=== PATIENT | male | born 1980 | race American Indian/Alaskan Native ===

== ENCOUNTER 2020-01-03 02:13 | Emergency (ER) | payer SELFPAY ==
[2020-01-03] MEDS ORDERED: ASPIRIN 325 MG TAB PO ONE (02:23)
[2020-01-03 02:54] LABS: Hematocrit 44.4 % (35.5-45.6); Hemoglobin 15.1 gm/dl (11.8-15.2); Mean Corpuscular HGB Conc 34 % (32-34); Mean Corpuscular Volume 95 fl (84-94); Platelet Count 287 K/mm3 (140-440); Red Blood Count 4.68 M/mm3 (3.65-5.03); Red Cell Distribution Width 12.9 % (13.2-15.2)
[2020-01-03] MEDS ORDERED: FAMOTIDINE 20 MG TAB PO ONE (03:05)
[2020-01-03] MEDS ORDERED: ACETAMINOPHEN 325 MG TAB PO ONE (03:05)
[2020-01-03] MEDS ORDERED: SUCRALFATE 1 GM/10 ML ORAL LIQD PO ONE (03:05)
--- NOTE | 2020-01-03 03:06 | Emergency Department Report ---
ED Chest Pain HPI - General Chief Complaint: Chest Pain Stated Complaint: CHEST PAIN Time Seen by Provider: 01/03/20 02:53 Source: patient, RN notes reviewed Mode of arrival: Ambulatory Limitations: No Limitations - History of Present Illness Initial Comments: The patient is a 39-year-old gentleman. He is not known to myself previously. He recently moved here from [place]. He reports that he had a negative cardiac stress test in [facility], probably within the past 6 months. He has a history of diabetes and hypertension. He presents to the ER with 2 complaints. His first complaint is left-sided and left epigastric pinching se nsation, present for months. It does not radiate to the back, arms or neck. There is no vomiting, diaphoresis or exertional shortness of breath. He does not have exacerbating or relieving factors that he is aware of. He denies recent travel, surgeries, leg pain, leg swelling, and oral contraceptive use. There is no family history of heart disease, DVT, or pulmonary embolism that he is aware of. He endorses a secondary complaint of right upper quadrant pinching discomfort, present for 4 days. It decreases with position. He cannot identify any exacerbating factors. There is no vomiting, fever, diaphoresis, urinary symptoms. He has not taken any eofg-ywq-nydsglg medications that he can recall. MD Complaint: chest pain, other -: Gradual Onset: during rest Pain Location: left chest, other Pain Radiation: none Severity scale (0 -10): 0 Quality: other Consistency: other Improves With: other Worsens With: other Context: other Aspirin use within the Past 7 Days: (0) No - Related Data Allergies Allergy/AdvReac Type Severity Reaction Status Date / Time No Known Allergies Allergy Unverified 01/03/20 02:22 Heart Score - HEART Score History: Slightly suspicious EKG: Non-specific Age: < 45 Risk factors: 1-2 risk factors Troponin: < normal limit HEART Score: 2 - Critical Actions Critical Actions: 0-3 pts:0.9-1.7%risk of adverse cardiac event.Candidate for discharge ED Review of Systems ROS: Stated complaint: CHEST PAIN Other details as noted in HPI Constitutional: denies: fever Eyes: denies: eye discharge ENT: denies: congestion Respiratory: denies: shortness of breath, wheezing Cardiovascular: chest pain. denies: syncope Gastrointestinal: denies: vomiting Genitourinary: as per HPI Musculoskeletal: as per HPI Skin: as per HPI Neurological: as per HPI Psychiatric: as per HPI Hematological/Lymphatic: as per HPI ED Past Medical Hx - Past Medical History Previous Medical History?: Yes Hx Hypertension: Yes Hx Diabetes: Yes - Surgical History Past Surgical History?: No - Social History Smoking Status: Former Smoker Substance Use Type: None ED Physical Exam - General Limitations: No Limitations General appearance: alert, in no apparent distress - Head Head exam: Present: atraumatic, normocephalic - Eye Eye exam: Present: normal appearance, EOMI. Absent: nystagmus - ENT ENT exam: Present: normal exam, normal orophraynx, mucous membranes moist, normal external ear exam - Neck Neck exam: Present: normal inspection, full ROM. Absent: tenderness, meningismus - Respiratory Respiratory exam: Present: normal lung sounds bilaterally. Absent: respiratory distress, wheezes, rales, rhonchi, stridor, chest wall tenderness, accessory muscle use, decreased breath sounds, prolonged expiratory - Cardiovascular Cardiovascular Exam: Present: regular rate, normal rhythm, normal heart sounds. Absent: bradycardia, tachycardia, irregular rhythm, systolic murmur, diastolic murmur, rubs, gallop - GI/Abdominal GI/Abdominal exam: Present: soft, normal bowel sounds, other (There is a negative Sprague sign. There is negative Rovsing sign. There is no right lower quadrant tenderness. There is no right upper quadrant tenderness.). Absent: distended, tenderness, guarding, rebound, rigid, pulsatile mass - Rectal Rectal exam: Present: deferred - Extremities Exam Extremities exam: Present: normal inspection, full ROM, other (2+ pulses noted in the bilateral upper and lower extremities. There is no palpable cord. negative Homans sign. Muscular compartments are soft. The pelvis is stable.). Absent: pedal edema, calf tenderness - Back Exam Back exam: Present: normal inspection, full ROM. Absent: tenderness, CVA tenderness (R), CVA tenderness (L), paraspinal tenderness, vertebral tenderness - Neurological Exam Neurological exam: Present: alert, normal gait, other (There is no facial droop. The tongue is midline. Extraocular movements are intact bilaterally. There is 5 out of 5 strength in bilateral upper and lower extremities. Sensation is intact to light touch bilateral upper and lower extremities. There is a normal gait.). Absent: motor sensory deficit - Psychiatric Psychiatric exam: Present: normal affect, normal mood - Skin Skin exam: Present: warm, dry, intact, normal color. Absent: rash ED Course Vital Signs 01/03/20 01/03/20 01/03/20 02:16 02:55 03:34 Temperature 98.6 F 98.7 F Pulse Rate 87 86 Respiratory 18 21 18 Rate Blood Pressure 167/94 Blood Pressure 143/84 [Left] O2 Sat by Pulse 99 99 98 Oximetry 01/03/20 04:08 Temperature 98.2 F Pulse Rate 85 Respiratory 17 Rate Blood Pressure Blood Pressure 126/79 [Left] O2 Sat by Pulse 99 Oximetry - Reevaluation(s) Reevaluation #1: 01/03/20 04:26 Patient resting comfortably, and in no acute distress. X-rays unremarkable. Do not suspect pneumonia or bronchitis clinically at this time. EKG unchanged x2, laboratory studies essentially unremarkable for emergent findings, patient playing with his cellular phone. He is medically suitable to follow-up with an outpatient primary care doctor or watchmaking teacher. AMAN score - Aman Score Age > 65: (0) No Aspirin use within the Past 7 Days: (0) No 3 or more CAD Risk Factors: (0) No 2 or more Angina events in past 24 hrs: (0) No Known CAD with more than 50% Stenosis: (0) No Elevated Cardiac Markers: (0) No ST Deviation Greater than 0.5mm: (0) No AMAN Score: 0 ED Medical Decision Making - Lab Data Result diagrams: 01/03/20 02:33 01/03/20 02:33 Vital Signs 01/03/20 01/03/20 01/03/20 02:16 02:55 03:34 Temperature 98.6 F 98.7 F Pulse Rate 87 86 Respiratory 18 21 18 Rate Blood Pressure 167/94 Blood Pressure 143/84 [Left] O2 Sat by Pulse 99 99 98 Oximetry Lab Results 01/03/20 01/03/20 01/03/20 Range/Units 02:33 02:33 03:02 WBC 6.8 (4.5-11.0) K/mm3 RBC 4.68 (3.65-5.03) M/mm3 Hgb 15.1 (11.8-15.2) gm/dl Hct 44.4 (35.5-45.6) % MCV 95 H (84-94) fl MCH 32 (28-32) pg MCHC 34 (32-34) % RDW 12.9 L (13.2-15.2) % Plt Count 287 (140-440) K/mm3 Add Manual Diff Complete Total Counted 100 Seg Neutrophils % Operator Cavity Pump Seg Neuts % (Manual) 39.0 L (40.0-70.0) % Band Neutrophils % 0 % Lymphocytes % (Manual) 54.0 H (13.4-35.0) % Reactive Lymphs % (Man) 0 % Monocytes % (Manual) 5.0 (0.0-7.3) % Eosinophils % (Manual) 2.0 (0.0-4.3) % Basophils % (Manual) 0 (0.0-1.8) % Metamyelocytes % 0 % Myelocytes % 0 % Promyelocytes % 0 % Blast Cells % 0 % Nucleated RBC % Not Reportable Seg Neutrophils # Man 2.7 (1.8-7.7) K/mm3 Band Neutrophils # 0.0 K/mm3 Lymphocytes # (Manual) 3.7 (1.2-5.4) K/mm3 Abs React Lymphs (Man) 0.0 K/mm3 Monocytes # (Manual) 0.3 (0.0-0.8) K/mm3 Eosinophils # (Manual) 0.1 (0.0-0.4) K/mm3 Basophils # (Manual) 0.0 (0.0-0.1) K/mm3 Metamyelocytes # 0.0 K/mm3 Myelocytes # 0.0 K/mm3 Promyelocytes # 0.0 K/mm3 Blast Cells # 0.0 K/mm3 WBC Morphology Not Reportable Hypersegmented Neuts Not Reportable Hyposegmented Neuts Not Reportable Hypogranular Neuts Not Reportable Smudge Cells Not Reportable Toxic Granulation Not Reportable Toxic Vacuolation Not Reportable Dohle Bodies Not Reportable Pelger-Huet Anomaly Not Reportable Reginaldo Rods Not Reportable Platelet Estimate Consistent w auto Clumped Platelets Not Reportable Plt Clumps, EDTA Not Reportable Large Platelets Not Reportable Giant Platelets Not Reportable Platelet Satelliting Not Reportable Plt Morphology Comment Not Reportable RBC Morphology Not Reportable Dimorphic RBCs Not Reportable Polychromasia Not Reportable Hypochromasia Not Reportable Poikilocytosis Not Reportable Anisocytosis Not Reportable Microcytosis Not Reportable Macrocytosis Not Reportable Spherocytes Not Reportable Pappenheimer Bodies Not Reportable Sickle Cells Not Reportable Target Cells Not Reportable Tear Drop Cells Not Reportable Ovalocytes Rare Helmet Cells Not Reportable Shah-Gardiner Bodies Not Reportable Clymer Rings Not Reportable Butler Cells Not Reportable Bite Cells Not Reportable Crenated Cell Not Reportable Elliptocytes Not Reportable Acanthocytes (Spur) Not Reportable Rouleaux Not Reportable Hemoglobin C Crystals Not Reportable Schistocytes Not Reportable Malaria parasites Not Reportable Slade Bodies Not Reportable Hem Pathologist Commnt No Sodium 143 (137-145) mmol/L Potassium 3.7 (3.6-5.0) mmol/L Chloride 103.7 (98-107) mmol/L Carbon Dioxide 27 (22-30) mmol/L Anion Gap 16 mmol/L BUN 6 L (9-20) mg/dL Creatinine 0.9 (0.8-1.5) mg/dL Estimated GFR > 60 ml/min BUN/Creatinine Ratio 7 % Glucose 128 H (75-100) mg/dL Calcium 9.1 (8.4-10.2) mg/dL Magnesium 2.00 (1.7-2.3) mg/dL Total Creatine Kinase 149 (55-170) units/L Troponin T < 0.010 (0.00-0.029) ng/mL Vital Signs 01/03/20 01/03/20 01/03/20 02:16 02:55 03:34 Temperature 98.6 F 98.7 F Pulse Rate 87 86 Respiratory 18 21 18 Rate Blood Pressure 167/94 Blood Pressure 143/84 [Left] O2 Sat by Pulse 99 99 98 Oximetry 01/03/20 04:08 Temperature 98.2 F Pulse Rate 85 Respiratory 17 Rate Blood Pressure Blood Pressure 126/79 [Left] O2 Sat by Pulse 99 Oximetry Lab Results 01/03/20 01/03/20 01/03/20 Range/Units 02:33 02:33 03:02 WBC 6.8 (4.5-11.0) K/mm3 RBC 4.68 (3.65-5.03) M/mm3 Hgb 15.1 (11.8-15.2) gm/dl Hct 44.4 (35.5-45.6) % MCV 95 H (84-94) fl MCH 32 (28-32) pg MCHC 34 (32-34) % RDW 12.9 L (13.2-15.2) % Plt Count 287 (140-440) K/mm3 Add Manual Diff Complete Total Counted 100 Seg Neutrophils % Operator Cavity Pump Seg Neuts % (Manual) 39.0 L (40.0-70.0) % Band Neutrophils % 0 % Lymphocytes % (Manual) 54.0 H (13.4-35.0) % Reactive Lymphs % (Man) 0 % Monocytes % (Manual) 5.0 (0.0-7.3) % Eosinophils % (Manual) 2.0 (0.0-4.3) % Basophils % (Manual) 0 (0.0-1.8) % Metamyelocytes % 0 % Myelocytes % 0 % Promyelocytes % 0 % Blast Cells % 0 % Nucleated RBC % Not Reportable Seg Neutrophils # Man 2.7 (1.8-7.7) K/mm3 Band Neutrophils # 0.0 K/mm3 Lymphocytes # (Manual) 3.7 (1.2-5.4) K/mm3 Abs React Lymphs (Man) 0.0 K/mm3 Monocytes # (Manual) 0.3 (0.0-0.8) K/mm3 Eosinophils # (Manual) 0.1 (0.0-0.4) K/mm3 Basophils # (Manual) 0.0 (0.0-0.1) K/mm3 Metamyelocytes # 0.0 K/mm3 Myelocytes # 0.0 K/mm3 Promyelocytes # 0.0 K/mm3 Blast Cells # 0.0 K/mm3 WBC Morphology Not Reportable Hypersegmented Neuts Not Reportable Hyposegmented Neuts Not Reportable Hypogranular Neuts Not Reportable Smudge Cells Not Reportable Toxic Granulation Not Reportable Toxic Vacuolation Not Reportable Dohle Bodies Not Reportable Pelger-Huet Anomaly Not Reportable Reginaldo Rods Not Reportable Platelet Estimate Consistent w auto Clumped Platelets Not Reportable Plt Clumps, EDTA Not Reportable Large Platelets Not Reportable Giant Platelets Not Reportable Platelet Satelliting Not Reportable Plt Morphology Comment Not Reportable RBC Morphology Not Reportable Dimorphic RBCs Not Reportable Polychromasia Not Reportable Hypochromasia Not Reportable Poikilocytosis Not Reportable Anisocytosis Not Reportable Microcytosis Not Reportable Macrocytosis Not Reportable Spherocytes Not Reportable Pappenheimer Bodies Not Reportable Sickle Cells Not Reportable Target Cells Not Reportable Tear Drop Cells Not Reportable Ovalocytes Rare Helmet Cells Not Reportable Shah-Gardiner Bodies Not Reportable Clymer Rings Not Reportable Ray Cells Not Reportable Bite Cells Not Reportable Crenated Cell Not Reportable Elliptocytes Not Reportable Acanthocytes (Spur) Not Reportable Rouleaux Not Reportable Hemoglobin C Crystals Not Reportable Schistocytes Not Reportable Malaria parasites Not Reportable Slade Bodies Not Reportable Hem Pathologist Commnt No Sodium 143 (137-145) mmol/L Potassium 3.7 (3.6-5.0) mmol/L Chloride 103.7 (98-107) mmol/L Carbon Dioxide 27 (22-30) mmol/L Anion Gap 16 mmol/L BUN 6 L (9-20) mg/dL Creatinine 0.9 (0.8-1.5) mg/dL Estimated GFR > 60 ml/min BUN/Creatinine Ratio 7 % Glucose 128 H (75-100) mg/dL Calcium 9.1 (8.4-10.2) mg/dL Magnesium 2.00 (1.7-2.3) mg/dL Total Bilirubin (0.1-1.2) mg/dL Direct Bilirubin (0-0.2) mg/dL Indirect Bilirubin mg/dL AST (5-40) units/L ALT (7-56) units/L Alkaline Phosphatase (35-129) units/L Total Creatine Kinase 149 (55-170) units/L Troponin T < 0.010 (0.00-0.029) ng/mL Total Protein (6.3-8.2) g/dL Albumin (3.9-5) g/dL Albumin/Globulin Ratio % Lipase (13-60) units/L 01/03/20 Range/Units 03:08 WBC (4.5-11.0) K/mm3 RBC (3.65-5.03) M/mm3 Hgb (11.8-15.2) gm/dl Hct (35.5-45.6) % MCV (84-94) fl MCH (28-32) pg MCHC (32-34) % RDW (13.2-15.2) % Plt Count (140-440) K/mm3 Add Manual Diff Total Counted Seg Neutrophils % Seg Neuts % (Manual) (40.0-70.0) % Band Neutrophils % % Lymphocytes % (Manual) (13.4-35.0) % Reactive Lymphs % (Man) % Monocytes % (Manual) (0.0-7.3) % Eosinophils % (Manual) (0.0-4.3) % Basophils % (Manual) (0.0-1.8) % Metamyelocytes % % Myelocytes % % Promyelocytes % % Blast Cells % % Nucleated RBC % Seg Neutrophils # Man (1.8-7.7) K/mm3 Band Neutrophils # K/mm3 Lymphocytes # (Manual) (1.2-5.4) K/mm3 Abs React Lymphs (Man) K/mm3 Monocytes # (Manual) (0.0-0.8) K/mm3 Eosinophils # (Manual) (0.0-0.4) K/mm3 Basophils # (Manual) (0.0-0.1) K/mm3 Metamyelocytes # K/mm3 Myelocytes # K/mm3 Promyelocytes # K/mm3 Blast Cells # K/mm3 WBC Morphology Hypersegmented Neuts Hyposegmented Neuts Hypogranular Neuts Smudge Cells Toxic Granulation Toxic Vacuolation Dohle Bodies Pelger-Huet Anomaly Reginaldo Rods Platelet Estimate Clumped Platelets Plt Clumps, EDTA Large Platelets Giant Platelets Platelet Satelliting Plt Morphology Comment RBC Morphology Dimorphic RBCs Polychromasia Hypochromasia Poikilocytosis Anisocytosis Microcytosis Macrocytosis Spherocytes Pappenheimer Bodies Sickle Cells Target Cells Tear Drop Cells Ovalocytes Helmet Cells Shah-Gardiner Bodies Clymer Rings Butler Cells Bite Cells Crenated Cell Elliptocytes Acanthocytes (Spur) Rouleaux Hemoglobin C Crystals Schistocytes Malaria parasites Slade Bodies Hem Pathologist Commnt Sodium (137-145) mmol/L Potassium (3.6-5.0) mmol/L Chloride (98-107) mmol/L Carbon Dioxide (22-30) mmol/L Anion Gap mmol/L BUN (9-20) mg/dL Creatinine (0.8-1.5) mg/dL Estimated GFR ml/min BUN/Creatinine Ratio % Glucose (75-100) mg/dL Calcium (8.4-10.2) mg/dL Magnesium (1.7-2.3) mg/dL Total Bilirubin 0.40 (0.1-1.2) mg/dL Direct Bilirubin < 0.2 (0-0.2) mg/dL Indirect Bilirubin 0.2 mg/dL AST 14 (5-40) units/L ALT 17 (7-56) units/L Alkaline Phosphatase 80 (35-129) units/L Total Creatine Kinase (55-170) units/L Troponin T (0.00-0.029) ng/mL Total Protein 6.5 (6.3-8.2) g/dL Albumin 4.4 (3.9-5) g/dL Albumin/Globulin Ratio 2.1 % Lipase 25 (13-60) units/L - EKG Data -: EKG Interpreted by Me EKG shows normal: sinus rhythm Rate: normal - EKG Data When compared to previous EKG there are: previous EKG unavailable 01/03/20 03:36 EKG #1 shows a sinus rhythm, 79 bpm, normal axis, normal intervals, high left ventricular voltage, not consistent with a STEMI. EKG 2 is unchanged from prior. Intervals are within normal limits for both EKGs. Neither EKG is consistent with a STEMI - Radiology Data Radiology results: report reviewed, image reviewed interpreted by me: Lateral x-ray of the chest is negative for acute disease Print Report Referring Physician: AYAD SERRATO Patient Name: KECIA WOLFF Date of : 1980 Sex: Male Report Date: 2020-01-03 Report Status: Finalized Findings [address] [address] XRay Report Signed Patient: KECIA WOLFF MR#: [id number] : 1980 Acct:[id number] Age/Sex: 39 / M ADM Date: 01/03/20 Loc: ED Attending Dr: Ordering Physician: AYAD SERRATO MD Date of Service: 01/03/20 Procedure(s): XR chest 1V ap Accession Number(s): [id number] cc: AYAD SERRATO MD Fluoro Time In Minutes: CHEST 1 VIEW INDICATION / CLINICAL INFORMATION: Chest Pain. COMPARISON: None available. FINDINGS: SUPPORT DEVICES: None. HEART / MED IASTINUM: No significant abnormality. LUNGS / PLEURA: No significant pulmonary or pleural abnormality. No pneumothorax. ADDITIONAL FINDINGS: No significant additional findings. IMPRESSION: 1. No acute findings. Signer Name: Lori Brandt MD Signed: 01/03/2020 3:20 AM Workstation Name: [id number] Transcribed By: JR Dictated By: Lori Brandt MD Electronically Authenticated By: Lori Brandt MD Signed Date/Time: 01/03/20319 DD/ 8 TD/TT: - Medical Decision Making Differential diagnosis, including but not limited to: GERD, gastritis, hiatal hernia, pneumonia, costochondritis, pancreatitis, hepatitis, acute coronary syndrome Constipation, functional abdominal pain, IBS Assessment and plan: 39-year-old gentleman, with no pulmonary embolism or DVT risk factors, who is low risk by Wells criteria, EKG unchanged x2, troponin negative x1, symptoms present for months, perc negative, as per the [employer] clinical policy, myocardial infarction may be ruled out with 1 set of cardiac enzymes if symptoms have been present for greater than 8 hours. The patient symptoms are treated supportively and symptomatically. He has no abdominal tenderness, rebound or guarding. His EKG is unremarkable, laboratory studies unremarkable, x-ray of the chest is unremarkable, and he is observed in this department for a few hours without clinical decompensation. The patient does not appear to have an emergent medical condition at this time. The patient is medically suitable to follow-up with an outpatient primary care doctor or watchmaking teacher. As per heart score, patient at very low risk for major adverse cardiac event. Furthermore, he reports a negative cardiac stress test within the past year. Critical care attestation.: If time is entered above; I have spent that time in minutes in the direct care of this critically ill patient, excluding procedure time. ED Disposition Clinical Impression: History of chest pain, Right sided abdominal pain Disposition: TO HOME OR SELFCARE Is pt being admited?: No Does the pt Need Aspirin: No Condition: Stable Additional Instructions: Avoid consumption of Motrin, ibuprofen, Naprosyn, Aleve, heavy and/or spicy foods. Patient may take Tylenol [id number]-[id number], 650 mg by mouth, every 4-6 hours as needed for pain, he may also take Pepcid [id number]-nre-ozrygwq, 20 mg by mouth, every 12-24 hours as needed for pain. Avoid consumption of smoke products tobacco, and alcohol. Follow-up with your primary care doctor or watchmaking teacher within the next 3 to 5 days. For the patient's convenience, numerous local physicians have been listed. Patient may feel free to contact any of the local listed physicians to ensure follow-up. Please return to the emergency room right away with new, worsened or different symptoms, or symptoms not present on the initial emergency room evaluation. Referrals: CRUZ MARY MD [Staff Physician] - 3-5 Days DASH BEARDEN MD [Staff Physician] - 3-5 Days SHEYLA AGUILAR MD [Staff Physician] - 3-5 Days
[2020-01-03 03:22] LABS: BUN/Creatinine Ratio 7; Blood Urea Nitrogen 6 mg/dL (9-20); Calcium 9.1 mg/dL (8.4-10.2); Hemolysis Index 5
--- NOTE | 2020-01-03 03:24 | XRay Report ---
CHEST 1 VIEW INDICATION / CLINICAL INFORMATION: Chest Pain. COMPARISON: None available. FINDINGS: SUPPORT DEVICES: None. HEART / MEDIASTINUM: No significant abnormality. LUNGS / PLEURA: No significant pulmonary or pleural abnormality. No pneumothorax. ADDITIONAL FINDINGS: No significant additional findings. IMPRESSION: 1. No acute findings. Signer Name: Lori Brandt MD Signed: 01/03/2020 3:20 AM Workstation Name: [id number]
[2020-01-03 03:30] LABS: Basophils % (Manual) 0 % (0.0-1.8); Total Cells Counted 100
[2020-01-03 03:33] LABS: Ovalocytes Rare
[2020-01-03 03:34] LABS: Platelet Estimate Consistent w Auto
[2020-01-03 03:36] LABS: Alanine Aminotransferase 17 units/L (7-56); Albumin 4.4 g/dL (3.9-5)
--- NOTE | 2020-01-03 03:40 | XRay Report ---
CHEST 1 VIEW INDICATION / CLINICAL INFORMATION: cp. A lateral view was requested by the ordering physician COMPARISON: AP view from earlier today FINDINGS: SUPPORT DEVICES: None. HEART / MEDIASTINUM: No significant abnormality. LUNGS / PLEURA: Mild peribronchial cuffing is identified. This can be seen in patients with asthma as well as cases of bronchitis. No evidence of pneumonia or pleural effusion. No pneumothorax. ADDITIONAL FINDINGS: No significant additional findings. IMPRESSION: 1. Mild peribronchial cuffing. No evidence of pneumonia or other significant finding. Signer Name: Lori Brandt MD Signed: 01/03/2020 3:36 AM Workstation Name: [email or web address]
[2020-01-03 03:46] LABS: Bilirubin,Direct < 0.2 mg/dL (0-0.2)
[2020-01-03 04:09] VITALS: BP 126/79
== END 2020-01-03 04:36 | disposition home or self-care (01) ==
LOC: ED 02:13
DX: R10.13 Epigastric pain (principal); R10.11 Right upper quadrant pain; I10 Essential (primary) hypertension; E11.9 Type 2 diabetes mellitus without complications
CPT/HCPCS: 36415; 71045; 80048; 80076; 82550; 83690; 83735; 84484; 85007; 85025; 93005; 93010; 99284

== ENCOUNTER 2022-06-23 10:56 | Emergency (ER) | payer SELFPAY ==
--- NOTE | 2022-06-23 11:14 | Emergency Department Report ---
Blank Doc - Documentation Documentation: 42-year-old male that presents with chest pain and tightness. 1- This is a initial triage assessment/medical screening only. Full assessment and work-up will be completed once the patient is in proper hospital gown, ED bed and in a private room setting. This initial assessment/diagnostic orders/clinical plan/ treatment(s) is/are subject to change based on pt's health status, clinical progression and re-assessment by fellow clinical providers in the ED. Further treatment and workup at subsequent clinical providers discretion. Patient/guardians urged not to elope from ED as their condition may be serious if not clinically assessed and managed. 2-cardiac workup The patient was evaluated in the emergency department for symptoms described in the history of present illness. He/she was evaluated in the context of the global COVID-19 pandemic, which necessitated consideration that the patient might be at risk for infection with the virus that causes COVID-19. Institutional protocols and algorithms that pertain to the evaluation of patients at risk for COVID-19 are in a state of rapid change based on information released by regulatory bodies including the CDC and federal and state organizations. These policies and algorithms were followed during the patient's care in the emergency department. Please note that these policies, procedures and recommendations changed on a rapid basis.
--- NOTE | 2022-06-23 11:49 | XRay Report ---
CHEST 2 VIEWS INDICATION / CLINICAL INFORMATION: Chest Pain. COMPARISON: Radiographs 04/30/2020, 01/03/2020 FINDINGS: SUPPORT DEVICES: None. HEART / MEDIASTINUM: No significant abnormality. LUNGS / PLEURA: No significant pulmonary or pleural abnormality. No pneumothorax. ADDITIONAL FINDINGS: No significant additional findings. IMPRESSION: 1. No acute findings. Signer Name: Nahum Waldron MD Signed: 06/23/2022 11:45 AM Workstation Name: [id number]
[2022-06-23 12:00] LABS: Basophils % (Auto) 0.8 % (0.0-1.8); Eosinophils # (Auto) 0.1 K/mm3 (0.0-0.4); Hemoglobin 14.5 gm/dl (11.8-15.2); Lymphocytes # (Auto) 2.3 K/mm3 (1.2-5.4); Lymphocytes % (Auto) 45.4 % (13.4-35.0); Mean Corpuscular HGB Conc 34 % (32-34); Mean Corpuscular Volume 95 fl (84-94); Monocytes # (Auto) 0.4 K/mm3 (0.0-0.8); Platelet Count 264 K/mm3 (140-440); Red Blood Count 4.55 M/mm3 (3.65-5.03); Red Cell Distribution Width 13.1 % (13.2-15.2)
[2022-06-23 12:13] LABS: INR 0.9 (0.87-1.13)
[2022-06-23 12:14] LABS: Partial Thromboplastin Time 24.2 Sec. (24.2-36.6)
[2022-06-23 12:39] LABS: Alanine Aminotransferase 38 units/L (7-56); Albumin 4.8 g/dL (3.9-5); BUN/Creatinine Ratio 12; Blood Urea Nitrogen 11 mg/dL (9-20); Calcium 9.7 mg/dL (8.4-10.2); Hemolysis Index 9
--- NOTE | 2022-06-23 12:50 | Emergency Department Report ---
ED General Adult HPI - General Chief complaint: Chest Pain Stated complaint: CHEST PAIN Time Seen by Provider: 06/23/22 11:12 Source: patient Mode of arrival: Ambulatory Limitations: No Limitations - History of Present Illness Initial comments: 42-year-old male with a history of hypertension diabetes reports to the ER with complaints of chest pain for 1 to 2 months. Patient reports he is a smoker but is decreasing his smoking. Patient reports his pain is 2 out of 10. Patient reports no shortness of breath no dizziness no headaches no weakness. Patient reports he takes his blood pressure medication and his statin medication as prescribed. Patient reports no other acute symptoms at this time. Severity scale (0 -10): 3 - Related Data Previous Rx's Medication Instructions Recorded Last Taken Type Ibuprofen [Motrin 600 MG tab] 600 mg PO Q8H PRN #15 tablet 04/30/20 Unknown Rx Allergies Allergy/AdvReac Type Severity Reaction Status Date / Time No Known Allergies Allergy Unverified 01/03/20 02:22 ED Review of Systems ROS: Stated complaint: CHEST PAIN Other details as noted in HPI Comment: All other systems reviewed and negative Respiratory: denies: shortness of breath Cardiovascular: chest pain ED Past Medical Hx - Past Medical History Previous Medical History?: Yes Hx Hypertension: Yes Hx Diabetes: Yes - Surgical History Past Surgical History?: No - Social History Smoking Status: Current Some Day Smoker Substance Use Type: Alcohol, Marijuana - Medications Home Medications: Home Medications Medication Instructions Recorded Confirmed Last Taken Type Ibuprofen [Motrin 600 MG tab] 600 mg PO Q8H PRN #15 tablet 04/30/20 Unknown Rx ED Physical Exam - General Limitations: No Limitations General appearance: alert, in no apparent distress - Head Head exam: Present: atraumatic, normocephalic - Eye Eye exam: Present: normal appearance - ENT ENT exam: Present: mucous membranes moist - Neck Neck exam: Present: normal inspection - Respiratory Respiratory exam: Present: normal lung sounds bilaterally. Absent: respiratory distress - Cardiovascular Cardiovascular Exam: Present: regular rate, normal rhythm. Absent: systolic murmur, diastolic murmur, rubs, gallop - GI/Abdominal GI/Abdominal exam: Present: soft, normal bowel sounds - Rectal Rectal exam: Present: deferred - Extremities Exam Extremities exam: Present: normal inspection - Back Exam Back exam: Present: normal inspection - Neurological Exam Neurological exam: Present: alert, oriented X3 - Psychiatric Psychiatric exam: Present: normal affect, normal mood - Skin Skin exam: Present: warm, dry, intact, normal color. Absent: rash ED Course Vital Signs 06/23/22 06/23/22 11:13 13:52 Temperature 98.5 F Pulse Rate 86 75 Respiratory 18 18 Rate Blood Pressure 155/93 135/73 [Left] O2 Sat by Pulse 100 98 Oximetry ED Medical Decision Making - Lab Data Result diagrams: 06/23/22 11:27 06/23/22 11:27 - Radiology Data Radiology results: report reviewed, image reviewed [facility] [address] [place] [address] XRay Report Signed Patient: KECIA WOLFF MR#: [id number] : 1980 Acct:[id number] Age/Sex: 42 / M ADM Date: 06/23/22 Loc: ED Attending Dr: Ordering Physician: FLOYD OLIVERA NP Date of Service: 06/23/22 Procedure(s): XR chest routine 2V Accession Number(s): [id number] cc: FLOYD OLIVERA NP Fluoro Time In Minutes: CHEST 2 VIEWS INDICATION / CLINICAL INFORMATION: Chest Pain. COMPARISON: Radiographs 04/30/2020, 01/03/2020 FINDINGS: SUPPORT DEVICES: None. HEART / MEDIASTINUM: No significant abnormality. LUNGS / PLEURA: No significant pulmonary or pleural abnormality. No pneum othorax. ADDITIONAL FINDINGS: No significant additional findings. IMPRESSION: 1. No acute findings. Signer Name: Juvencio Waldron MD Signed: 06/23/2022 11:45 AM Workstation Name: [id number] Transcribed By: Dictated By: JUVENCIO WALDRON MD Electronically Authenticated By: JUVENCIO WALDRON MD Signed Date/Time: 06/23/22 1145 DD/ 1145 TD/TT: - Medical Decision Making 42-year-old male with a history of hypertension diabetes reports to the ER with complaints of chest pain for 1 to 2 months. Patient reports he is a smoker but is decreasing his smoking. Patient reports his pain is 2 out of 10. Patient reports no shortness of breath no dizziness no headaches no weakness. Patient reports he takes his blood pressure medication and his statin medication as prescribed. Patient reports no other acute symptoms at this time. No chest wall tenderness on exam. No other acute clinical signs noted on physical exam. CBC CMP unremarkable. Troponin negative Chest x-ray with no acute process noted. EKG sinus rhythm 77 heart rate no acute process noted on EKG. Patient informed and updated on labs and imaging. Patient stable for discharge. Likely chest discomfort history of come from patient daily smoking. Patient informed to follow his primary care provider. Patient agrees with plan of care and verbalized understanding. Vital Signs 06/23/22 06/23/22 11:13 13:52 Temperature 98.5 F Pulse Rate 86 75 Respiratory 18 18 Rate Blood Pressure 155/93 135/73 [Left] O2 Sat by Pulse 100 98 Oximetry Lab Results 06/23/22 06/23/22 06/23/22 Range/Units 11:27 11:27 11:27 WBC 5.1 (4.5-11.0) K/mm3 RBC 4.55 (3.65-5.03) M/mm3 Hgb 14.5 (11.8-15.2) gm/dl Hct 43.0 (35.5-45.6) % MCV 95 H (84-94) fl MCH 32 (28-32) pg MCHC 34 (32-34) % RDW 13.1 L (13.2-15.2) % Plt Count 264 (140-440) K/mm3 Lymph % (Auto) 45.4 H (13.4-35.0) % Harmon % (Auto) 8.0 H (0.0-7.3) % Eos % (Auto) 1.0 (0.0-4.3) % Baso % (Auto) 0.8 (0.0-1.8) % Lymph # (Auto) 2.3 (1.2-5.4) K/mm3 Harmon # (Auto) 0.4 (0.0-0.8) K/mm3 Eos # (Auto) 0.1 (0.0-0.4) K/mm3 Baso # (Auto) 0.0 (0.0-0.1) K/mm3 Seg Neutrophils % 44.8 (40.0-70.0) % Seg Neutrophils # 2.3 (1.8-7.7) K/mm3 PT 13.1 (12.2-14.9) Sec. INR 0.90 (0.87-1.13) APTT 24.2 (24.2-36.6) Sec. Sodium 140 (137-145) mmol/L Potassium 3.9 (3.6-5.0) mmol/L Chloride 103.4 (98-107) mmol/L Carbon Dioxide 28 (22-30) mmol/L Anion Gap 13 mmol/L BUN 11 (9-20) mg/dL Creatinine 0.9 (0.8-1.3) mg/dL Estimated GFR > 60 ml/min BUN/Creatinine Ratio 12 % Glucose 174 H (75-100) mg/dL Calcium 9.7 (8.4-10.2) mg/dL Total Bilirubin 1.00 (0.1-1.2) mg/dL AST 18 (5-40) units/L ALT 38 (7-56) units/L Alkaline Phosphatase 98 (35-129) units/L Troponin T < 0.010 (0.00-0.029) ng/mL Total Protein 6.6 (6.3-8.2) g/dL Albumin 4.8 (3.9-5) g/dL Albumin/Globulin Ratio 2.7 % Critical care attestation.: If time is entered above; I have spent that time in minutes in the direct care of this critically ill patient, excluding procedure time. ED Disposition Clinical Impression: Chest pain Qualifiers: Chest pain type: other chest pain Qualified Code(s): R07.89 - Other chest pain Disposition: 01 HOME / SELF CARE / HOMELESS Is pt being admited?: No Condition: Stable Instructions: Nonspecific Chest Pain, Adult, Pain Without a Known Cause Referrals: CRUZ MARY MD [Primary Care Provider] - 3-5 Days Forms: Work/School Release Form(ED)
[2022-06-23 13:53] VITALS: BP 135/73
--- NOTE | 2022-06-24 10:01 | Electrocardiograph Report ---
[facility] Test Date: 2022-06-23 Test Time: 11:32:36 Pat Name: KECIA WOLFF Department: Room: Gender: M Vertical [employer] Operator: REBECCA : 1980 Requested By: FLOYD OLIVERA Order Number: [id number] Reading MD: Ronn Robles Measurements Intervals Simla Rate: 77 P: 70 MD: 147 QRS: 65 QRSD: 81 T: 65 QT: 371 QTc: 420 Interpretive Statements Sinus rhythm nonspecific st-t No previous ECG available for comparison Electronically Signed On 06-24-2022 10:01:23 EDT by Ronn Robles
== END 2022-06-23 13:53 | disposition home or self-care (01) ==
LOC: ED 10:56
DX: R07.89 Other chest pain (principal); E11.9 Type 2 diabetes mellitus without complications; I10 Essential (primary) hypertension; F17.200 Nicotine dependence, unspecified, uncomplicated; F12.90 Cannabis use, unspecified, uncomplicated; Z72.89 Other problems related to lifestyle; Z98.890 Other specified postprocedural states; Z79.899 Other long term (current) drug therapy
CPT/HCPCS: 36415; 71046; 80053; 84484; 85025; 85610; 85730; 93005; 99283